=== PATIENT | female | born 1970 | race Hispanic/Latino ===

== ENCOUNTER 2022-12-30 07:56 | Day surgery (SDC) | payer MEDICARE ==
[2022-12-26 14:14] LABS: BASOPHILS # (AUTO) 0.01 K/uL (0.00-0.20); BASOPHILS % (AUTO) 0.3 % (0.0-5.0); IMMATURE GRANULOCYTE ABSOLUTE 0.02 K/uL (0-1); LYMPHOCYTES # (AUTO) 0.4 K/uL (1.0-4.8); LYMPHOCYTES % (AUTO) 10.5 % (21.0-51.0); MEAN CORPUSCULAR HGB CONC 32.7 g/dL (32.0-36.0); MEAN CORPUSCULAR VOLUME 97.6 fL (79-99); MONOCYTES # (AUTO) 0.1 K/uL (0.1-1.0); MONOCYTES % (AUTO) 2.6 % (3.0-13.0); PLATELET COUNT (AUTO) 133 K/uL (130-400); RED BLOOD CELL COUNT(AUTO) 3.38 MIL/uL (4.00-5.50); RED CELL DISTRIBUTION WIDTH 16.4 % (11.0-15.5); WHITE BLOOD COUNT (AUTO) 3.5 K/uL (4.8-10.8)
[2022-12-26 14:16] VITALS: BP 144/78; PULSE 86; RESP 18
[2022-12-26 14:27] LABS: INR 0.97 (0.85-1.15); PROTHROMBIN TIME 11.3 SEC (9.6-11.6)
[2022-12-26 14:45] LABS: ALBUMIN 2.7 g/dL (3.5-5.0); BILIRUBIN,TOTAL 0.5 mg/dL (0.2-1.0); CREATININE 0.7 mg/dL (0.5-1.5); TOTAL PROTEIN, SERUM 6.1 g/dL (6.0-8.3)
[2022-12-30] VITALS (21 sets, daily range): BP systolic 130–151; BP diastolic 52–89; PULSE 65–90; RESP 9–18
[~2022-12-30] VITALS: Ht 162.6 cm; Wt 78.2 kg
[~2022-12-30 07:56] MED LIST: HYDR-4060 PO; MAGN400T40 PO; ONDA8TAB12 PO; PRED20TA3 PO; calcium PO; potassium PO; protonix PO; turmeric PO; vitamin b 12 PO; vitamin c PO; vitamin d PO; zinc PO
[2022-12-30] MEDS ORDERED: MEROPENEM 1 GM VIAL ONE (08:12)
[2022-12-30] MEDS ORDERED: LACTATED RINGERS 1000ML 1,000 ML IV ONE (08:13)
[2022-12-30] MEDS ORDERED: FAMOTIDINE 20MG VIAL IV ONE (11:25)
[2022-12-30] MEDS ORDERED: LIDOCAINE PF 100MG/5ML (2%) SYRINGE 5ML ONE (11:27)
[2022-12-30] MEDS ORDERED: MIDAZOLAM HCL 1 MG/ML 2ML VIAL ONE (11:27)
[2022-12-30] MEDS ORDERED: GLYCOPYRROLATE 1 MG/5 ML SYRINGE ONE (11:27)
[2022-12-30] MEDS ORDERED: PROPOFOL 10 MG/ML 20ML VIAL IV ONE ×2 (11:27→14:26)
[2022-12-30] MEDS ORDERED: FENTANYL CITRATE PF 50 MCG/1 ML 5ML AMP IV ONE (11:27)
[2022-12-30] MEDS ORDERED: ROCURONIUM 10MG/1ML SYR 10 MG/ML ML ONE ×2 (11:27→12:47)
[2022-12-30] MEDS ORDERED: PHENYLEPHRINE HCL 10 MG/ML 1ML VIAL IV ONE (11:28)
[2022-12-30] MEDS ORDERED: ONDANSETRON 4MG INJ ONE ×2 (11:37→14:47)
[2022-12-30] MEDS ORDERED: LIDOCAINE 2%-EPI 1:200,000 20 ML VIAL IJ ONE (12:02)
[2022-12-30] MEDS ORDERED: BUPIVACAINE/PF 0.5% 30ML VIAL INJ ONE (12:03)
[2022-12-30] MEDS ORDERED: ESMOLOL HCL 10 MG/ML 10 ML VIAL ONE (12:04)
[2022-12-30] MEDS ORDERED: BUPIVACAINE/PF 0.5% 30ML VIAL ONE (12:31)
[2022-12-30] MEDS ORDERED: NEOSTIGMINE 5MG/5ML SYR IV ONE (14:06)
[2022-12-30] MEDS ORDERED: KETOROLAC 30MG VIAL (30MG/ML) ONE (15:26)
[2022-12-30] MEDS ORDERED: MEPERIDINE-PF 25 MG/ML SYG ONE (17:10)
== END 2022-12-30 17:10 | disposition home or self-care (01) ==
LOC: DAHIP 07:56 → UNDOADMIN 07:56 → DAH 07:56 → EDSTATUS 09:50 → DAH 17:10
PROVIDERS: ATTEND Surgery
DX: C48.1 Malignant neoplasm of specified parts of peritoneum (principal); Z20.822 Contact with and (suspected) exposure to COVID-19; K65.4 Sclerosing mesenteritis; R19.4 Change in bowel habit; I10 Essential (primary) hypertension; K21.9 Gastro-esophageal reflux disease without esophagitis; D64.9 Anemia, unspecified; F32.A Depression, unspecified; F41.9 Anxiety disorder, unspecified; Z79.899 Other long term (current) drug therapy; Z79.01 Long term (current) use of anticoagulants; Z98.890 Other specified postprocedural states; Z90.710 Acquired absence of both cervix and uterus; Z90.49 Acquired absence of other specified parts of digestive tract
CPT/HCPCS: 80053; 84703; 85025; 85610; 85730; 86850 ×2; 86900 ×2; 86901 ×2; 87426; 36415 ×2; 93005; 49329; 49321; A6260; A4663; J7030; J7120 ×2; A4344; A4215 ×2; J3490 ×6; J3010; J2710; J2001; J2250; J2704 ×2; J2405 ×2; J1885; J2175; J2371; J2185; A4649; A4930; A4223; A4222; A4221; A4600; G0168